=== PATIENT | female | born 1955 | race Caucasian/White ===

== ENCOUNTER 2017-01-11 05:31 | Day surgery (SDC) | payer MEDICAID ==
[~2017-01-11] VITALS: Ht 160 cm; Wt 71.4 kg
[~2017-01-11 05:31] MED LIST: ASPI81 PO; IBUP-1681 PO; LISI-662 PO; METO-325 PO
[2017-01-11] MEDS ORDERED: SODIUM CHLORIDE 0.9% 1,000 ML IV ONE ×2 (05:51→06:00)
[2017-01-11 07:03] LABS: PROTHROMBIN TIME 10.8 SEC (9.4-11.6)
[2017-01-11] MEDS ORDERED: LIDOCAINE HCL/PF 1% 30 ML VIAL ONE (07:27)
[2017-01-11] MEDS ORDERED: SODIUM BICARBONATE 50 MEQ/50 ML VIAL ONE (07:27)
[2017-01-11] MEDS ORDERED: IODIXANOL 320 MG/ML 100 ML VIAL ONE (07:29)
[2017-01-11] MEDS ORDERED: FentaNYL CITRATE-PF 100 MCG/2 ML VIAL IVP ONE ×3 (07:30→09:00)
[2017-01-11] MEDS ORDERED: MIDAZOLAM HCL 2 MG/2 ML VIAL IVP ONE ×2 (07:30→09:00)
[2017-01-11] MEDS ORDERED: HEPARIN SODIUM 1000 UNITS/NS 500 ML ONE ×2 (07:41→08:18)
[2017-01-11 07:45] VITALS: BP 153/81
[2017-01-11] MEDS ORDERED: MIDAZOLAM HCL 2 MG/2 ML VIAL ONE (08:08)
[2017-01-11] MEDS ORDERED: FentaNYL CITRATE-PF 100 MCG/2 ML VIAL ONE (08:08)
[2017-01-11 08:31] VITALS: BP 138/84
[2017-01-11] MEDS ORDERED: HEPARIN SODIUM,PORCINE 5,000 UNITS/ML VIAL IVP ONE (09:00)
== END 2017-01-11 11:05 | disposition home or self-care (01) ==
LOC: SDS 05:31
PROVIDERS: ATTEND Radiology Vascular & Interventional Radiology
DX: I70.222 Atherosclerosis of native arteries of extremities with rest pain, left leg (principal); J45.909 Unspecified asthma, uncomplicated; J44.9 Chronic obstructive pulmonary disease, unspecified; F10.21 Alcohol dependence, in remission; F12.21 Cannabis dependence, in remission; Z79.01 Long term (current) use of anticoagulants; Z98.84 Bariatric surgery status; Z90.49 Acquired absence of other specified parts of digestive tract; Z79.82 Long term (current) use of aspirin; Z95.1 Presence of aortocoronary bypass graft; Z95.5 Presence of coronary angioplasty implant and graft; Z87.891 Personal history of nicotine dependence; Z86.79 Personal history of other diseases of the circulatory system; Z87.01 Personal history of pneumonia (recurrent); Z87.448 Personal history of other diseases of urinary system; Z86.2 Personal history of diseases of the blood and blood-forming organs and certain disorders involving the immune mechanism
CPT/HCPCS: 36415; 37224; 75625; 75716; 85610; 85730; 93005; 99152; 99153; C1725; C1760; C1769; C1887 ×2; C1892; J1644; J2250; J3010; J3490 ×2; J7030; Q9967; 36200; 75630; 75962